=== PATIENT | female | born 1950 | race Caucasian/White ===

== ENCOUNTER → 2017-05-11 | Outpatient (CLI) | payer MEDICARE ==
[~2017-05-11] MED LIST: CALCIUM600 M2 PO; FOSAMAX70 M1 PO; MULTI-DAY VITA1 EACH PO; PANTOPRAZOLE SO40 MG PO; ZOCOR5 MG PO
== END | disposition home or self-care (01) ==
LOC: LAB 10:40
DX: E21.0 Primary hyperparathyroidism (principal)

== ENCOUNTER → 2017-10-27 | Outpatient (CLI) | payer MEDICARE | END | disposition home or self-care (01) | LOC: RAD 10:52 → US 12:30 | DX: Z13.820 Encounter for screening for osteoporosis (principal); N95.9 Unspecified menopausal and perimenopausal disorder; M81.0 Age-related osteoporosis without current pathological fracture; E03.9 Hypothyroidism, unspecified ==

== ENCOUNTER → 2018-06-18 | Outpatient (CLI) | payer MEDICARE ==
[2018-06-18 11:06] LABS: BUN 13 mg/dl (7-24); CHLORIDE 105 mmol/L (98-107); CREATININE 0.72 mg/dL (0.55-1.02); POTASSIUM 4.3 mmol/L (3.5-5.1); SODIUM 138 mmol/L (136-145)
== END | disposition home or self-care (01) ==
LOC: LAB 10:25
PROVIDERS: Internal Medicine
DX: M81.0 Age-related osteoporosis without current pathological fracture (principal)

== ENCOUNTER → 2020-01-23 | Outpatient (CLI) | payer MEDICARE | END | disposition home or self-care (01) | LOC: US 01:57 | DX: M85.89 Other specified disorders of bone density and structure, multiple sites (principal); E21.0 Primary hyperparathyroidism; E04.2 Nontoxic multinodular goiter ==